=== PATIENT | male | born 1950 | race African-American/Black ===

== ENCOUNTER 2020-05-30 19:40 | Inpatient (IN) | payer MEDICARE, OTHER ==
[~2020-05-30] VITALS: Ht 182.9 cm; Wt 59.0 kg
[2020-05-30 22:44] LABS: Basophils # (auto) 0 10 ^3/uL (0-0.2); Basophils % (auto) 0.7 % (0.0-2.0); Eosinophils # (auto) 0.3 10 ^3/uL (0-0.8); Eosinophils % (auto) 4.6 % (0.0-7.0); Hematocrit 40.7 % (41.0-53.0); Hemoglobin 13.9 g/dL (13.5-17.5); Lymphocytes # (auto) 1.7 10 ^3/uL (0.4-5.4); Mean Corpuscular Hgb Conc. 34.3 g/dL (32.0-36.0); Mean Corpuscular Volume 87.5 fL (80.0-100.0); Monocytes # (auto) 0.5 10 ^3/uL (0-1.3); Monocytes % (auto) 8.5 % (0.0-12.0); Neutrophils # (auto) 3.9 10 ^3/uL (1.6-8.6); Neutrophils % (auto) 60.2 % (37.0-80.0); Red Blood Cells 4.65 10^6/uL (4.5-5.90); Red Cell Distribution Width 14.9 % (11.8-14.3); White Blood Cell 6.5 10^3/uL (4.4-10.8)
[2020-05-30 22:59] LABS: INR 1.03 (0.9-1.15); Partial Thromboplastin Time 28.8 sec (23.0-31.2)
[2020-05-30 23:12] LABS: Albumin 2.7 g/dL (3.4-5.0); Calcium 9.3 mg/dL (8.5-10.1); Magnesium 2.4 mg/dL (1.6-2.6); Potassium 3.8 mmol/L (3.5-5.1); Salicylate 1.7 mg/dL (2.8-20.0)
[2020-05-30 23:15] LABS: Acetaminophen < 2.0 ug/mL (10-30)
[2020-05-30 23:17] LABS: BUN/Creatinine Ratio 16.9; Bilirubin, Total 0.4 mg/dL (0.2-1.0); Total Protein 6.4 g/dL (6.4-8.2)
[2020-05-31] MEDS ORDERED: diphenhdrAMINE HCL 50 MG/1 ML VL ONE (00:30)
[2020-05-31] MEDS ORDERED: HALOPERIDOL LACTATE 5 MG/ML INJ VIAL ONE (00:30)
[2020-05-31] MEDS ORDERED: LORazepam 2MG/ML-1ML VIAL ONE (00:31)
[2020-05-31] MEDS ORDERED: ACETAMINOPHEN 325 MG TAB PO PRN (06:45)
[2020-05-31] MEDS ORDERED: ONDANSETRON HCL 4 MG/2 ML VIAL IV PRN (06:45)
[2020-05-31] MEDS ORDERED: LORazepam 2MG/ML-1ML VIAL IM ONE ×2 (07:00→20:30)
[2020-05-31] MEDS ORDERED: diphenhdrAMINE HCL 50 MG/1 ML VL IM ONE ×2 (07:00→20:30)
[2020-05-31] MEDS ORDERED: HALOPERIDOL LACTATE 5 MG/ML INJ VIAL IM ONE ×2 (07:00→20:30)
[2020-05-31] MEDS: FAMOTIDINE 20 MG TAB PO SCH (13:00)
[2020-05-31] MEDS: ENOXAPARIN SOD 40 MG/0.4 ML SYRINGE SC SCH (13:00)
[2020-05-31 14:04] LABS: Urine Bacteria FEW /hpf (None Seen); Urine Blood Negative /uL (Negative); Urine Mucus FEW (None Seen); Urine Specific Gravity 1.008 (1.001-1.035); Urine WBC 1 /hpf (0 - 3)
[2020-05-31 14:19] LABS: Amphetamine Screen, Urine NEGATIVE (NEGATIVE); Barbiturate Scree,Urine NEGATIVE (NEGATIVE); Benzodiazephine Screen, Urine NEGATIVE (NEGATIVE); Cannabinoid Screen, Urine NEGATIVE (NEGATIVE); Cocaine Screen, Urine NEGATIVE (NEGATIVE); Opiate Scree,Urine NEGATIVE (NEGATIVE); Phencyclidine Screen, Urine NEGATIVE (NEGATIVE)
[2020-05-31] MEDS ORDERED: IOHEXOL 350 MG/ML 100ML IJ ONE (14:20)
[2020-05-31 14:21] LABS: Alcohol, Urine < 3.0 mg/dL (0-10)
[2020-05-31] MEDS ORDERED: LORazepam 2MG/ML-1ML VIAL IV PRN (21:00)
[2020-05-31 22:42] LABS: Folate (Folic Acid) 16.42 ng/mL (5.38-24)
[2020-06-01] MEDS: FAMOTIDINE 20 MG TAB PO SCH ×3 (00:50→22:00)
[2020-06-01] MEDS: ENOXAPARIN SOD 40 MG/0.4 ML SYRINGE SC SCH (10:09)
[2020-06-01] MEDS: THIAMINE 100mg/ml INJ (200mg/2ml VIAL) IV SCH (10:09)
[2020-06-01 11:19] LABS: BUN/Creatinine Ratio 14.5; Calcium 8.7 mg/dL (8.5-10.1); Potassium 3.8 mmol/L (3.5-5.1)
[2020-06-01] MEDS ORDERED: DEXTROSE 50% SYRINGE 50 ML IV ONE (11:40)
[2020-06-01] MEDS ORDERED: DEXTROSE (50%) 50ML SYRG IV ONE (12:00)
[2020-06-01] MEDS: D5W/SOD CHLO 0.9% 1,000 ML IV SCH (15:20)
[2020-06-02] MEDS: D5W/SOD CHLO 0.9% 1,000 ML IV SCH ×2 (05:05→09:22)
[2020-06-02] MEDS: FAMOTIDINE 20 MG TAB PO SCH ×2 (09:22→09:49)
[2020-06-02] MEDS: THIAMINE 100mg/ml INJ (200mg/2ml VIAL) IV SCH (10:02)
[2020-06-02] MEDS: ENOXAPARIN SOD 40 MG/0.4 ML SYRINGE SC SCH (10:02)
[2020-06-02] MEDS ORDERED: HALOPERIDOL LACTATE 5 MG/ML INJ VIAL IM PRN (13:45)
[2020-06-02] MEDS: LORazepam 2MG/ML-1ML VIAL IV PRN (15:16)
[2020-06-02] MEDS ORDERED: LISI40TA11 PO (15:44)
[2020-06-02] MEDS ORDERED: MELA3TAB27 PO (15:44)
[2020-06-02] MEDS ORDERED: VALP250S19 PO (15:44)
[2020-06-02] MEDS ORDERED: OLAN1TAB7 PO (15:44)
[2020-06-02 16:00] VITALS: BP 161/109
[2020-06-02 22:00] VITALS: BP 161/94
[2020-06-02] MEDS: TEMAZEPAM 15 MG CAP PO PRN (22:30)
[2020-06-03 04:00] VITALS: BP 151/93
[2020-06-03] MEDS: D5W/SOD CHLO 0.9% 1,000 ML IV SCH ×2 (06:45→13:42)
[2020-06-03 09:10] VITALS: BP 153/95
[2020-06-03] MEDS: FAMOTIDINE 20 MG TAB PO SCH ×2 (10:00→21:49)
[2020-06-03] MEDS: THIAMINE 100mg/ml INJ (200mg/2ml VIAL) IV SCH (10:05)
[2020-06-03] MEDS: ENOXAPARIN SOD 40 MG/0.4 ML SYRINGE SC SCH (10:05)
[2020-06-03 12:40] VITALS: BP 147/97
[2020-06-03 16:53] VITALS: BP 145/93
[2020-06-03] MEDS: TEMAZEPAM 15 MG CAP PO PRN (21:50)
[2020-06-03 22:00] VITALS: BP 139/80
[2020-06-03] MEDS: LORazepam 2MG/ML-1ML VIAL IV PRN (23:17)
[2020-06-04 05:30] VITALS: BP 125/89
[2020-06-04] MEDS: D5W/SOD CHLO 0.9% 1,000 ML IV SCH (06:11)
[2020-06-04 08:00] VITALS: BP 125/57
[2020-06-04 09:09] VITALS: BP 124/83
[2020-06-04] MEDS: ENOXAPARIN SOD 40 MG/0.4 ML SYRINGE SC SCH (11:45)
[2020-06-04] MEDS: THIAMINE 100mg/ml INJ (200mg/2ml VIAL) IV SCH (11:45)
[2020-06-04] MEDS: FAMOTIDINE 20 MG TAB PO SCH (11:46)
[2020-06-04 13:55] VITALS: BP 137/89
[2020-06-04 16:06] VITALS: BP 124/83
[2020-06-04 16:57] VITALS: BP 135/87
== END 2020-06-04 18:12 | disposition hospice, home (50) | DRG 896 ==
LOC: EDBD 19:40 → ER 19:40 → OVERFLOW 19:41 → CENTRAL 06-02 15:24
PROVIDERS: ADMIT Nurse Practitioner; ATTEND Family Medicine
DX: F10.129 Alcohol abuse with intoxication, unspecified (principal); G93.41 Metabolic encephalopathy; R45.851 Suicidal ideations; F03.91 Unspecified dementia, unspecified severity, with behavioral disturbance; E44.0 Moderate protein-calorie malnutrition; J98.11 Atelectasis; Z68.1 Body mass index [BMI] 19.9 or less, adult; F43.12 Post-traumatic stress disorder, chronic; Y90.2 Blood alcohol level of 40-59 mg/100 ml; R62.7 Adult failure to thrive; I10 Essential (primary) hypertension; F04 Amnestic disorder due to known physiological condition; E88.09 Other disorders of plasma-protein metabolism, not elsewhere classified; F43.10 Post-traumatic stress disorder, unspecified; H02.402 Unspecified ptosis of left eyelid; J43.9 Emphysema, unspecified; F17.200 Nicotine dependence, unspecified, uncomplicated; Z79.899 Other long term (current) drug therapy; Z79.01 Long term (current) use of anticoagulants; Z79.891 Long term (current) use of opiate analgesic; Z20.822 Contact with and (suspected) exposure to COVID-19
CPT/HCPCS: 36415; 51702; 70450; 71045; 71275; 80048; 80053; 80307; 80320; 80329; 81001; 82607; 82746; 82962; 83735; 83880; 84443; 85025; 85379; 85610; 85730; 93005; 93970; 96372; G0378; J7042